=== PATIENT | female | born 1955 | race Caucasian/White ===

== ENCOUNTER 2016-10-29 13:19 | Observation (INO) | payer OTHER ==
[~2016-10-29] VITALS: Ht 160 cm; Wt 59.6 kg
[~2016-10-29 13:19] MED LIST: ATOR10TA9 PO; ATOR20TA PO; CARV12.52 PO; ESTR1PAT79 TD; MELO-184 PO; METO-93 PO
[2016-10-29] MEDS ORDERED: ASPIRIN 81 MG TABLET CHEW PO ONE (14:00)
[2016-10-29] MEDS ORDERED: NITROGLYCERIN SINGLE TAB 0.4 MG SL PRN (14:00)
[2016-10-29] MEDS ORDERED: SODIUM CHLORIDE FLUSH 10ML SYR IVF ONE (14:00)
[2016-10-29] MEDS ORDERED: NITROGLYCERIN SINGLE TAB 0.4 MG SL ONE (14:08)
[2016-10-29] MEDS ORDERED: ASPIRIN 81 MG TABLET CHEW ONE (14:09)
[2016-10-29 14:10] LABS: HEMATOCRIT 39.1 % (34.6-47.8); HEMOGLOBIN 13.2 g/dL (11.7-16.4); WHITE BLOOD COUNT 8.8 x10^3/uL (3.4-10)
[2016-10-29 14:23] LABS: BLOOD UREA NITROGEN 12 mg/dL (7-18)
[2016-10-29 14:36] LABS: IS PT STATUS REG ER OR PRE ER? YES
[2016-10-29] MEDS ORDERED: ONDANSETRON 2MG/ML, 2ML ONE (14:55)
[2016-10-29] MEDS ORDERED: MORPHINE SULFATE 4 MG/ML, 1ML ONE (14:55)
[2016-10-29] MEDS ORDERED: ONDANSETRON 2MG/ML, 2ML IVPush ONE (15:00)
[2016-10-29] MEDS ORDERED: MORPHINE SULFATE 4 MG/ML, 1ML IVPush PRN (15:00)
[2016-10-29] MEDS ORDERED: CARV12.543 PO (15:27)
[2016-10-29] MEDS ORDERED: SODIUM CHLORIDE FLUSH 10ML SYR IVF PRN (15:30)
[2016-10-29] MEDS ORDERED: NICOTINE 14MG/24 HR PATCH.TD24 TD SCH (16:30)
[2016-10-29] MEDS ORDERED: ONDANSETRON ODT 4 MG PO PRN (16:30)
[2016-10-29 19:30] VITALS: BP 116/73
[2016-10-29 20:11] VITALS: BP 116/73
[2016-10-29 20:39] LABS: IS PT STATUS REG ER OR PRE ER? NO
[2016-10-29] MEDS: ATORVASTATIN 20 MG TABLET PO SCH ×2 (21:00→22:19)
[2016-10-29] MEDS: CARVEDILOL 12.5 MG TABLET PO SCH (22:20)
[2016-10-29] MEDS ORDERED: MELATONIN 5 MG TABLET PO PRN (23:30)
[2016-10-30 00:34] VITALS: BP 98/60
[2016-10-30 02:33] LABS: IS PT STATUS REG ER OR PRE ER? NO
[2016-10-30 03:21] VITALS: BP 93/52
[2016-10-30] MEDS ORDERED: IBUPROFEN 200 MG TABLET PO PRN (03:30)
[2016-10-30 08:21] VITALS: BP 117/69
[2016-10-30] MEDS ORDERED: MELOXICAM 15 MG TABLET PO SCH (09:00)
[2016-10-30] MEDS ORDERED: REGADENOSON 0.4 MG/5 ML SYRINGE ONE (10:36)
[2016-10-30 12:38] VITALS: BP 134/80
[2016-10-30] MEDS: CARVEDILOL 12.5 MG TABLET PO SCH (12:45)
[2016-10-30] MEDS ORDERED: IBUPROFEN 200 MG TABLET PO ONE (13:00)
== END 2016-10-30 17:15 | disposition home or self-care (01) ==
LOC: ED 16:38 → EDIP 16:40 → INTOOBSV 16:40 → EDIP 18:33 → 4WST 18:33 → UNDODISIN 10-30 17:15
PROVIDERS: ADMIT Family Medicine; ATTEND Family Medicine
DX: R07.89 Other chest pain (principal); F41.9 Anxiety disorder, unspecified; E78.00 Pure hypercholesterolemia, unspecified; E78.5 Hyperlipidemia, unspecified; F17.200 Nicotine dependence, unspecified, uncomplicated; K21.9 Gastro-esophageal reflux disease without esophagitis; Z79.82 Long term (current) use of aspirin
CPT/HCPCS: 36415; 71010; 78452; 80048; 82040; 83880; 84484; 85025; 85379; 85610; 85730; 93005; 93017; 96374; 96375; 99285; A9502; C9898; G0378; J2405; J2785

== ENCOUNTER 2017-03-21 04:18 | Emergency (ER) | payer OTHER ==
[~2017-03-21] VITALS: Ht 160 cm; Wt 61.1 kg
[~2017-03-21 04:18] MED LIST changes: +CARV12.543 PO; -MELO-184 PO; +MELO15TA24 PO
[2017-03-21 04:20] VITALS: BP 145/76
[2017-03-21] MEDS ORDERED: OXYcodone/APAP 5/325MG TABLET PO ONE (05:00)
[2017-03-21] MEDS ORDERED: OXYcodone/APAP 5/325MG TABLET ONE (05:26)
[2017-03-21 05:31] LABS: BASOPHILS # (AUTO) 0.08 x10^3/uL (0-0.1); BASOPHILS % (AUTO) 1 % (0-1); EOSINOPHILS # (AUTO) 0.78 x10^3/uL (0-0.4); EOSINOPHILS % (AUTO) 8 % (1-7); LYMPHOCYTES # (AUTO) 2.17 x10^3/uL (1-3.4); LYMPHOCYTES % (AUTO) 23 % (22-44); MD NO; MEAN CORPUSCULAR HEMOGLOBIN 34.9 pg (27.0-34.8); MEAN CORPUSCULAR HGB CONC 33.8 g/dL (32.4-35.8); MEAN CORPUSCULAR VOLUME 103.1 fL (80-100); MEAN PLATELET VOLUME 7.2 fL (7.4-10.4); MONOCYTES # (AUTO) 0.79 x10^3/uL (0.2-0.8); MONOCYTES % (AUTO) 9 % (2-9); NEUTROPHILS # (AUTO) 5.44 x10^3/uL (1.8-6.8); NEUTROPHILS % (AUTO) 59 % (42-75); PLATELET COUNT 317 x10^3/uL (130-400); RED BLOOD COUNT 3.66 x10^6/uL (3.82-5.3); RED CELL DISTRIBUTION WIDTH 13.5 % (9.6-15.2)
[2017-03-21 05:36] LABS: RAPID INFLUENZA A Negative (Negative); RAPID INFLUENZA B Negative (Negative)
== END 2017-03-21 06:48 | disposition home or self-care (01) ==
LOC: ED 05:19
DX: J01.00 Acute maxillary sinusitis, unspecified (principal); I10 Essential (primary) hypertension; E78.00 Pure hypercholesterolemia, unspecified; F17.210 Nicotine dependence, cigarettes, uncomplicated
CPT/HCPCS: 36415; 70450; 71046; 85025; 87400; 99285